=== PATIENT | male | born 1955 | race Caucasian/White ===

== ENCOUNTER 2024-05-24 17:15 | Emergency (ER) | payer MEDICARE, OTHER ==
[2024-05-24 17:41] VITALS: TEMP 97.5
[2024-05-24] MEDS ORDERED: MAGNESIUM SULF 2 G/50 ML BAG 2 GM/50 ML PIGGYBACK IV ONE (17:51)
[2024-05-24] MEDS: MAGNESIUM SULF 2 G/50 ML BAG 2 GM/50 ML PIGGYBACK IV ONE (18:03)
[2024-05-24 18:13] LABS: Absolute Neutrophil Ct (ANC) 3.91 x10^3/uL (1.78-5.38); BASOPHIL % 0.3 % (0.2-1.2); Basophil (Absolute #) 0.02 x10^3/uL (0.01-0.08); Eosinophil % 1.9 % (0.8-7.0); Eosinophil (Absolute #) 0.12 x10^3/uL (0.04-0.54); Hematocrit 38.3 % (40.1-51.0); Hemoglobin 13.2 g/dL (13.7-17.5); IMMATURE GRAN # 0.01 x10^3u/L (0.001-0.031); IMMATURE GRAN % 0.2 % (0.001-0.429); Lymphocyte (Absolute #) 1.75 x10^3/uL (1.32-3.57); Lymphocytes % 27.8 % (21.8-53.1); Mean Cell Volume 88.2 fL (79.0-92.2); Mean Corpuscular Hemoglobin 30.4 pg (25.7-32.2); Mean Corpuscular Hgb Concent. 34.5 g/dL (32.3-36.5); Mean Platelet Volume 10.8 fL (9.4-12.4); Monocyte (Absolute #) 0.48 x10^3/uL (0.30-0.82); Monocytes % 7.6 % (5.3-12.2); Neutrophil % 62.2 % (34.0-67.9); Platelet Count 231 x10^3/uL (163-337); Red Blood Count 4.34 x10^6/uL (4.63-6.08); Red Cell Distribution Width 12.4 % (11.6-14.4); White Blood Count 6.3 x10^3/uL (4.23-9.07)
[2024-05-24 18:37] LABS: ALBUMIN 4.2 g/dL (3.5-5.0); BILIRUBIN,TOTAL 1.2 mg/dL (0.2-1.3); Calcium 9.6 mg/dL (8.4-10.2); Creatinine 1 0.98 mg/dL (0.66-1.25); MAGNESIUM 2.1 mg/dL (1.6-2.3); Potassium 3.8 mmol/L (3.5-5.1); Total Protein 7.1 g/dL (6.3-8.2)
--- NOTE | 2024-05-24 18:51 | ERPHSYRPT ---
- History of Present Illness Time Seen by Provider: 05/24/24 17:27 Source: patient Exam Limitations: no limitations Patient Subjective Stated Complaint: C/O HTN that started yesterday. Patient indicates that his doctor discontinued his hctz 12.5mg 2-3 weeks ago due to low B/P. He noticed yesterday that his B/P is now too high. Denies chest pain. Triage Nursing Assessment: Patient ambulated back to ER without difficulties. He is alert and oriented. No cough. No SOB. Skin tone normal. MATHIS WNL. Mild edema noted to BLE. Physician History: 68 years old male with history of hypertension, recently taken off of HCTZ and n ow taking only valsartan presented in the ER with his blood pressure staying high since yesterday. Patient report his blood pressure was 175 systolic earlier. Denies any chest pain palpitations or shortness of breath. Patient denies any headache, visual disturbance, numbness tingling or focal weakness. No history of coronary artery disease. Patient has intermittent runs of PVCs on presentation in the ER when placed on monitor and heart rate drops in 30s. Allergies/Adverse Reactions: cephalexin monohydrate [From Keflex] Allergy (Verified 05/24/24 17:23) naproxen sodium [From Aleve] Allergy (Verified 05/24/24 17:23) Home Medications: Pantoprazole Sodium [Protonix] 40 mg PO DAILY 08/26/14 [History] Valsartan [Diovan] 160 mg PO DAILY 08/26/14 [History] Ergocalciferol (Vitamin D2) [Vitamin D2] 1,250 mcg PO WEEKLY 05/24/24 [History] Hx Tetanus, Diphtheria Vaccination/Date Given: Yes Hx Influenza Vaccination/Date Given: Yes Hx Pneumococcal Vaccination/Date Given: No Immunizations Up to Date: Yes Travel Risk - International Travel Have you traveled outside of the country in past 3 weeks: No - Emerging Infectious Disease Are you exhibiting symptoms associated with any current EIDs: No - Review of Systems Constitutional: No Symptoms Ears, Nose, & Throat: No Symptoms Respiratory: No Symptoms Cardiac: No Symptoms Abdominal/Gastrointestinal: No Symptoms Genitourinary Symptoms: No Symptoms Musculoskeletal: No Symptoms Skin: No Symptoms Neurological: No Symptoms Endocrine: No Symptoms Hematologic/Lymphatic: No Symptoms Immunological/Allergic: No Symptoms - Past Medical History Pertinent Past Medical History: Yes Neurological History: Other Cardiac History: Hypertension Respiratory History: No Pertinent History Endocrine Medical History: No Pertinent History Musculoskeletal History: Fractures, Osteoarthritis, Other GI Medical History: Gallbladder Disease, Hernia Other Medical History: irregular heart rate, 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 - Past Surgical History Past Surgical History: Yes Gastrointestinal: Cholecystectomy, Hernia Repair Musculoskeletal: Orthopedic Surgery Other Surgical History: right heel, left knee, bilateral shoulders - Social History Smoking Status: Never smoker Exposure to second hand smoke: No Drug Use: none Patient Lives Alone: No - Social Determinants of Health Will the patient participate in the screening: Yes Do you worry about a steady place to live?: No Do you have any problems with any of the following?: No known problems In the past 12 months,have you had to go without utilities?: No Transportation Issues: No Has anyone in your support network made you feel unsafe?: No Have you or anyone in your house had to go without enough: No - Nursing Vital Signs Nursing Vital Signs: Initial Vital Signs Temperature 97.5 F 05/24/24 17:25 Pulse Rate 80 05/24/24 17:25 Respiratory Rate 16 05/24/24 17:25 Blood Pressure 199/91 05/24/24 17:25 O2 Sat by Pulse Oximetry 97 05/24/24 17:25 Pain Scale Pain Intensity 0 - Physical Exam General Appearance: no apparent distress, alert Eye Exam: PERRL/EOMI Ears, Nose, Throat Exam: normal ENT inspection Neck Exam: normal inspection, supple, full range of motion Respiratory Exam: normal breath sounds, lungs clear, No chest tenderness Cardiovascular Exam: regular rate/rhythm, normal heart sounds Gastrointestinal/Abdomen Exam: soft, normal bowel sounds, No tenderness Back Exam: normal inspection, normal range of motion Extremity Exam: normal inspection, normal range of motion Neurologic Exam: alert, oriented x 3, cooperative, 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 Skin Exam: normal color SpO2 Interpretation: normal SpO2: 95 O2 Delivery: Room Air - Course EKG Interpreted by Me: RATE, Sinus Rhythm (61), NORMAL AXIS, NORMAL INTERVALS, Non-specific ST Changes, Other (Second EKG time 2018; rate 55 bpm, sinus bradycardia, multiple PVCs, normal axis, normal intervals, no ST elevations) Ordered Tests: Active Orders 24 hr Category Date Time Status CHEST 1 VIEW (PORTABLE) Stat Exams 05/24/24 17:44 Taken CBC W DIFF Stat Lab 05/24/24 17:43 Completed CK-Creatinine Phosphokinase Stat Lab 05/24/24 17:50 Completed CMP Stat Lab 05/24/24 17:50 Completed MAGNESIUM Stat Lab 05/24/24 17:50 Completed NT PRO BNPII Stat Lab 05/24/24 17:50 Completed TROPONIN Q4H Lab 05/24/24 17:50 Completed Medication Summary Discontinued Medications Generic Name Dose Route Start Last Admin Trade Name Freq PRN Reason Stop Dose Admin Magnesium Sulfate/Water 2 gm in 50 mls @ 100 mls/hr 05/24/24 17:50 05/24/24 18:36 Magnesium Sulf 2 G/50 Ml Bag IV 05/24/24 18:19 Infused ONCE ONE Infusion Magnesium Sulfate/Water Confirm 05/24/24 17:51 Magnesium Sulf 2 G/50 Ml Bag Administered 05/24/24 17:52 Dose 2 gm in 50 mls @ ud IV .STK-MED ONE Lab/Rad Data: Laboratory Result Diagrams 05/24/24 17:43 05/24/24 17:50 Laboratory Results 05/24/24 05/24/24 05/24/24 Range/Units 17:50 17:50 17:43 WBC 6.3 (4.23-9.07) x10^3/uL RBC 4.34 L (4.63-6.08) x10^6/uL Hgb 13.2 L (13.7-17.5) g/dL Hct 38.3 L (40.1-51.0) % MCV 88.2 (79.0-92.2) fL MCH 30.4 (25.7-32.2) pg MCHC 34.5 (32.3-36.5) g/dL RDW 12.4 (11.6-14.4) % Plt Count 231 (163-337) x10^3/uL MPV 10.8 (9.4-12.4) fL Gran % 62.2 (34.0-67.9) % Immature Gran % (Auto) 0.2 (0.001-0.429) % Nucleat RBC Rel Count 0.0 (0.00-0.2) % Eos # (Auto) 0.12 (0.04-0.54) x10^3/uL Immature Gran # (Auto) 0.01 (0.001-0.031) x10^3u/L Absolute Lymphs (auto) 1.75 (1.32-3.57) x10^3/uL Absolute Monos (auto) 0.48 (0.30-0.82) x10^3/uL Absolute Nucleated RBC 0.00 (0.00-0.012) x10^3u/L Lymphocytes % 27.8 (21.8-53.1) % Monocytes % 7.6 (5.3-12.2) % Eosinophils % 1.9 (0.8-7.0) % Basophils % 0.3 (0.2-1.2) % Absolute Granulocytes 3.91 (1.78-5.38) x10^3/uL Basophils # 0.02 (0.01-0.08) x10^3/uL Sodium 143 (135-145) mmol/L Potassium 3.8 (3.5-5.1) mmol/L Chloride 110 H (98-107) mmol/L Carbon Dioxide 23 (22-30) mmol/L Anion Gap 13.0 (5-15) MEQ/L BUN 10 (9-20) mg/dL Creatinine 0.98 (0.66-1.25) mg/dL Estimated GFR 84.0 ML/MIN Glucose 104 (74-106) mg/dL Calcium 9.6 (8.4-10.2) mg/dL Magnesium 2.1 (1.6-2.3) mg/dL Total Bilirubin 1.20 (0.2-1.3) mg/dL AST 29 (17-59) U/L ALT 24 (0-50) U/L Alkaline Phosphatase 77 (38-126) U/L Creatine Kinase 106 (55-170) U/L Troponin I < 0.012 (0.000-0.033) ng/mL NT-Pro-B Natriuret Pep 679 (<300) pg/mL Serum Total Protein 7.1 (6.3-8.2) g/dL Albumin 4.2 (3.5-5.0) g/dL - Progress Progress Note: 05/24/24 21:05 68 years old is evaluated in the ER for elevated blood pressure. Patient blood pressure is in 170s on presentation. The EKG is sinus rhythm with PVCs but no acute ST elevations. Negative initial troponins. Normal white count and fairly unremarkable chemistries. Chest x-ray negative for any acute cardiopulmonary findings reviewed by me, official report is pending. While in the ER patient's heart rate was dropping in 30s with frequent PVCs. I have given him 2 g of IV magnesium with minimal relief. Although patient is asymptomatic but it worths to monitor him and may need further evaluation by cardiology. I have discussed with Dr. Castaneda, recommended transfer to facility with cardiology services in house. I have called [facility] transfer [facility], reviewed history, workup with transfer nurse Birgit and patient is auto excepted on behalf of Dr. Mast. I have shared the results of workup with patient and family and plan of transfer which they understand and agree. Patient although does not want to go by EMS and his is going to drive him over there. Discussed the risk of going POV with his low heart rate which could be life-threatening which he understands and agrees and still prefers to go by POV. 05/24/24 21:[address] Other (Dr. Castaneda hospitalist) Counseled pt/family regarding: lab results, diagnosis, need for follow-up, rad results Medical Desision Making - Discussion of managment Care discussed with:: on-call "doc" Reviewed:: Test results Agreed on:: Treatment plan Will see patient: in ED - Diagnostic Testing Diagnostic test were ordered, analyzed, and reviewed by me: Yes Radiological Interpretation: Interpreted by me, Reviewed by me - Risk of complications The pt has a mod risk of morbidity or mortality based on: Need for prescription drug management - Departure Departure Disposition: Transfer Clinical Impression: Bradycardia, Hypertension, uncontrolled, PVCs (premature ventricular contractions) Condition: Stable Critical Care Time: No Referrals: ALLEN VEGA MD [Primary Care Provider] - Follow up/PCP as directed
[2024-05-24 21:04] VITALS: BP 155/88; PULSE 49; RESP 13
[2024-05-24 21:09] VITALS: O2SAT 95
--- NOTE | 2024-05-25 09:18 | XRAY ---
Indication: Hypertension. Comparison: July 21, 2023 Portable apical lordotic chest inflated and remains clear. Heart is now borderline enlarged again with tortuous descending aorta. Bony thorax intact again with osteopenia and degenerative changes. Impression: Nonacute chest with chronic features.
== END 2024-05-24 21:24 | disposition short-term general hospital (02) ==
LOC: ED 17:15
DX: R00.1 Bradycardia, unspecified (principal); I10 Essential (primary) hypertension; I49.3 Ventricular premature depolarization; Z79.899 Other long term (current) drug therapy
CPT/HCPCS: 36000; 36415; 71045; 80053; 82550; 83735; 83880; 84484; 85025; 99284; J3475